=== PATIENT | female | born 1950 | race Caucasian/White ===

== ENCOUNTER → 2016-09-28 | Outpatient (CLI) | payer MEDICARE ==
[~2016-09-28] MED LIST: ALAW0.02 OU; ATEN50TA2 PO; BENETAB2 PO; CRES10TA32 PO; ELIQ5TAB PO; FISH1000 PO; HYDR25TA6 PO; HYDR25TAB PO; NASA1SPR; OMEP40CA2 PO; TYLE325T5 PO
--- NOTE | 2016-09-28 16:34 | REP ---
BILATERAL DIGITAL SCREENING MAMMOGRAM: 09/28/2016. Clinical history: Screening examination. She has no current complaint, personal or family history of breast cancer. She had a benign cyst aspiration and 1995 on the right. Comparison: 09/22/2012, 08/31/2011, right breast ultrasound and diagnostic mammogram, 08/11/2011 digital mammogram. Findings: The breast parenchyma are mostly fatty replaced with a few scattered fibroglandular elements present. Some questionable developing nodular tissue asymmetry upper outer quadrant retroareolar right breast at the junction of the middle and anterior one third of the breast is seen in both CC and MLO images and I put an arrow there on today's study. Axillary node in the inferior aspect of the axilla adjacent to the pectoralis shadow. A benign calcification is seen. There are no dominant masses, areas of architectural distortion/tissue asymmetry, suspicious cluster of microcalcification or other acute finding. Impression: 1. BIRADS ACR category zero complete, needs additional imaging evaluation. I would recommend followup spot magnified CC and MLO images with true ML and right breast ultrasound for further evaluation. This mammogram was interpreted with the aid of an FDA-approved computer-aided detection system. The patient states she had a clinical breast exam in 08/2016.
== END ==
LOC: M WHC 15:06
PROVIDERS: ATTEND Nurse Practitioner Adult Health
DX: R92.2 Inconclusive mammogram (principal)

== ENCOUNTER → 2016-10-07 | Outpatient (CLI) | payer MEDICARE ==
--- NOTE | 2016-10-07 11:47 | REP ---
DIAGNOSTIC MAMMOGRAM RIGHT BREAST: Diagnostic mammogram right breast performed. Multiple spot compression views are obtained and correlated with the recent mammogram of 09/28/2016 which showed a possible nodular area of parenchymal asymmetry in the upper outer quadrant of the right breast. Today's spot compression views show that the parenchyma in this region compresses out to an unchanged appearance compared to other prior exams. There is no persistent nodule or architectural distortion. IMPRESSION: ACR 2 benign. No persistent nodule or architectural distortion on today's spot compression views. There is no change since prior studies. Recommend followup mammogram in 1 year. BI-RADS/ACR category 2 mammogram. Benign finding(s). Routine annual screening mammography (for women over age 40). This mammogram was interpreted with the aid of an FDA-approved computer-aided detection system. A. Negative x-ray reports should not delay biopsy if a dominant or clinically suspicious mass is present. B. Four to eight percent of cancers are not identified by x-ray. C. Adenosis and dense breasts may obscure an underlying neoplasm. The patient letter being requested is M1. Signed by Chris Song MD 10/07/2016 01:31 P
== END ==
LOC: M RAD 10:53
PROVIDERS: ATTEND Nurse Practitioner Adult Health
DX: N63 Unspecified lump in breast (principal)

== ENCOUNTER 2016-11-03 09:15 | Day surgery (SDC) | payer MEDICARE ==
[~2016-11-03] VITALS: Ht 163.8 cm; Wt 101.6 kg
[~2016-11-03 09:15] MED LIST changes: +ACETAMINOPHEN 325 MG TAB PO PRN; +ACETYLCHOLINE OPHTH SOLN 1% 2ML (MIOCHOL-E) As Ordered ONE; +BALANCED SALT IRRIGATION SOLUTION 500ML BAG (FOR OR EYE MACHINE) As Ordered ONE; +CEFUROXIME 1MG/0.1ML INTRACAMERAL INJ As Ordered ONE; +CYCLOPENTOLATE 2% OPHTH SOLN 2ML BTL OS ONE; +D5W/0.2% SODIUM CHLORIDE 250 ML IV ONE; +HEALON DUET (HEALON 10MG/ML 0.55ML & HEALON ENDOCOAT 30MG/ML 0.85ML) As Ordered ONE; -HYDR25TA6 PO; +LIDOCAINE 1% SDV 5 ML VIAL As Ordered ONE; +LIDOCAINE 3.5 % 1ML OPHTH TOPICAL GEL OU ONE; +OFLOXACIN 0.3 % (OCUFLOX) OPTH SOL 5ML OS ONE; +PHENYLEPHRINE 2.5% OPHTH SOL 2ML OS ONE; +POVIDONE-IODINE 5% OPHTH PREP SOL 30ML As Ordered ONE; +PROPARACAINE 0.5% OPHTH SOL 15ML OS PRN; +TROPICAMIDE 1% OPHTH SOLN 2ML OS ONE
[2016-11-03] MEDS ORDERED: LR 500 ML ONE (10:09)
[2016-11-03] MEDS ORDERED: MIDAZOLAM INJ 2 MG/2 ML VIAL (J2250) As Ordered ONE (10:30)
[2016-11-03] MEDS ORDERED: fentaNYL 100 MCG/2 ML INJECTION (J3010) As Ordered ONE (10:30)
[2016-11-03 11:25] VITALS: BP 120/60
[2016-11-03] MEDS ORDERED: TRIMETHOBENZAMIDE 300 MG CAP PO PRN (11:30)
[2016-11-03] MEDS ORDERED: AcetaZOLAMIDE 500 MG ER CAP PO ONE (11:30)
[2016-11-03] MEDS ORDERED: KETOROLAC 0.5% OPHTH SOLN OS ONE (11:30)
--- NOTE | 2016-11-03 11:39 | RO ---
DATE OF PROCEDURE: 11/03/2016 PREPROCEDURE DIAGNOSIS: Age-related nuclear cataract, left eye. POSTPROCEDURE DIAGNOSIS: Age-related nuclear cataract, left eye. PROCEDURE: Femtosecond cataract extraction with posterior chamber intraocular lens, Age-related nuclear cataract, left eye. The lens used was [id number], 15.0 diopter. SURGEON: Alexus Hernández MD BULLET SLUGS INSPECTOR: ANESTHESIA: Topical sedation. DESCRIPTION OF PROCEDURE: The patient was brought to the operating room and put under the femtosecond laser. A lid speculum was placed between the lids, and the laser was lowered on. Docking was achieved with good suction. The laser procedure was performed with no difficulty. The laser was then removed from the eye, and the lid speculum was removed. The laser was moved over to the operating microscope and prepped and draped in the usual fashion. A lid speculum was placed between the lids. The eye was fixated. The side port incision was opened up with a spatula. 1% non-preservative lidocaine was instilled; then, viscoelastic was instilled. The main incision was then opened with the spatula. The capsulorrhexis was removed from the eye with the Utrata forceps. The lens was then hydrodissected, and a phacoemulsification unit was used to make a groove in the nucleus and one meridian. The nucleus was cracked into four quadrants, and then each quadrant was removed with the phacoemulsification unit. Any remaining cortex was removed with the irrigation and aspiration (I and A) unit. The capsular bag was refilled with viscoelastic. A posterior chamber intraocular lens was placed in the capsular bag. The remaining viscoelastic was removed. The wound was hydrated. Miochol and cefuroxime were instilled. The wound was watertight. The patient tolerated the procedure well and went to the recovery room in stable condition.
[2016-11-22] MEDS ORDERED: HYDR25TA6 PO (10:24)
== END 2016-11-03 11:44 | disposition home or self-care (01) ==
LOC: M SDC 09:15
PROVIDERS: ATTEND Ophthalmology
DX: H25.12 Age-related nuclear cataract, left eye (principal); I48.0 Paroxysmal atrial fibrillation; I10 Essential (primary) hypertension; E78.00 Pure hypercholesterolemia, unspecified; K21.9 Gastro-esophageal reflux disease without esophagitis; M12.9 Arthropathy, unspecified; R06.83 Snoring; Z79.899 Other long term (current) drug therapy; Z90.710 Acquired absence of both cervix and uterus; Z79.01 Long term (current) use of anticoagulants
CPT/HCPCS: 66984; J2250; J3010; V2632

== ENCOUNTER → 2016-11-18 | Outpatient (CLI) | payer MEDICARE ==
[~2016-11-18] MED LIST changes: -ACETAMINOPHEN 325 MG TAB PO PRN; -ACETYLCHOLINE OPHTH SOLN 1% 2ML (MIOCHOL-E) As Ordered ONE; -BALANCED SALT IRRIGATION SOLUTION 500ML BAG (FOR OR EYE MACHINE) As Ordered ONE; -CEFUROXIME 1MG/0.1ML INTRACAMERAL INJ As Ordered ONE; -CYCLOPENTOLATE 2% OPHTH SOLN 2ML BTL OS ONE; -D5W/0.2% SODIUM CHLORIDE 250 ML IV ONE; -HEALON DUET (HEALON 10MG/ML 0.55ML & HEALON ENDOCOAT 30MG/ML 0.85ML) As Ordered ONE; +HYDR25TA6 PO; -LIDOCAINE 1% SDV 5 ML VIAL As Ordered ONE; -LIDOCAINE 3.5 % 1ML OPHTH TOPICAL GEL OU ONE; -OFLOXACIN 0.3 % (OCUFLOX) OPTH SOL 5ML OS ONE; -PHENYLEPHRINE 2.5% OPHTH SOL 2ML OS ONE; -POVIDONE-IODINE 5% OPHTH PREP SOL 30ML As Ordered ONE; -PROPARACAINE 0.5% OPHTH SOL 15ML OS PRN; -TROPICAMIDE 1% OPHTH SOLN 2ML OS ONE
--- NOTE | 2016-11-18 19:40 | REP ---
HISTORY: Pain after trauma to the fifth digit of the left hand. COMPARISON: None. FINDINGS: No acute fracture or destructive osseous lesion. Signed by Sae Hernandez DO 11/22/2016 10:29 A
== END ==
LOC: M WUC 19:01
PROVIDERS: ATTEND Physician Assistant
DX: M79.645 Pain in left finger(s) (principal)

== ENCOUNTER 2016-12-01 09:10 | Day surgery (SDC) | payer MEDICARE ==
[~2016-12-01] VITALS: Ht 163.8 cm; Wt 101.6 kg
[~2016-12-01 09:10] MED LIST changes: +ACETAMINOPHEN 325 MG TAB PO PRN; +ACETYLCHOLINE OPHTH SOLN 1% 2ML (MIOCHOL-E) As Ordered ONE; +BALANCED SALT IRRIGATION SOLUTION 500ML BAG (FOR OR EYE MACHINE) As Ordered ONE; +CEFUROXIME 1MG/0.1ML INTRACAMERAL INJ As Ordered ONE; +CYCLOPENTOLATE 2% OPHTH SOLN 2ML BTL OD ONE; +HEALON DUET (HEALON 10MG/ML 0.55ML & HEALON ENDOCOAT 30MG/ML 0.85ML) As Ordered ONE; +LIDOCAINE 1% SDV 5 ML VIAL As Ordered ONE; +LIDOCAINE 3.5 % 1ML OPHTH TOPICAL GEL OU ONE; +OFLOXACIN 0.3 % (OCUFLOX) OPTH SOL 5ML OD ONE; +PHENYLEPHRINE 2.5% OPHTH SOL 2ML OD ONE; +POVIDONE-IODINE 5% OPHTH PREP SOL 30ML As Ordered ONE; +PROPARACAINE 0.5% OPHTH SOL 15ML OD PRN; +TROPICAMIDE 1% OPHTH SOLN 2ML OD ONE
[2016-12-01] MEDS ORDERED: TROPICAMIDE 1% OPHTH SOLN 2ML As Ordered ONE (09:24)
[2016-12-01] MEDS ORDERED: OFLOXACIN 0.3 % (OCUFLOX) OPTH SOL 5ML As Ordered ONE (09:24)
[2016-12-01] MEDS ORDERED: CYCLOPENTOLATE 2% OPHTH SOLN 2ML BTL As Ordered ONE (09:24)
[2016-12-01] MEDS ORDERED: PHENYLEPHRINE 2.5% OPHTH SOL 2ML As Ordered ONE (09:24)
[2016-12-01] MEDS ORDERED: LR 1,000 ML IV SCH (09:30)
[2016-12-01] MEDS ORDERED: fentaNYL 100 MCG/2 ML INJECTION (J3010) As Ordered ONE (09:57)
[2016-12-01] MEDS ORDERED: MIDAZOLAM INJ 2 MG/2 ML VIAL (J2250) As Ordered ONE (09:57)
[2016-12-01] MEDS ORDERED: CEFUROXIME 1MG/0.1ML INTRACAMERAL INJ As Ordered ONE (10:23)
[2016-12-01] MEDS ORDERED: LIDOCAINE 1% SDV 5 ML VIAL As Ordered ONE (10:23)
[2016-12-01] MEDS ORDERED: ACETYLCHOLINE OPHTH SOLN 1% 2ML (MIOCHOL-E) As Ordered ONE (10:23)
[2016-12-01] MEDS ORDERED: TRIMETHOBENZAMIDE 300 MG CAP PO PRN (11:15)
[2016-12-01] MEDS ORDERED: AcetaZOLAMIDE 500 MG ER CAP PO ONE (11:15)
[2016-12-01] MEDS ORDERED: KETOROLAC 0.5% OPHTH SOLN OD ONE (11:15)
[2016-12-01 11:39] VITALS: BP 155/82
--- NOTE | 2016-12-01 13:27 | RO ---
DATE OF PROCEDURE: 12/01/2016 PREPROCEDURE DIAGNOSIS: Age related nuclear cataract right eye. POSTPROCEDURE DIAGNOSIS: Age related nuclear cataract right eye. PROCEDURE: Femtosecond cataract extraction with posterior chamber intraocular lens. The lens used was [id number], 16.5 diopter. SURGEON: Alexus Hernández MD TRIMMING OPERATOR: ANESTHESIA: Topical sedation. DESCRIPTION OF PROCEDURE: The patient was brought to the operating room and put under the femtosecond laser. A lid speculum was placed between the lids, and the laser was lowered on. Docking was achieved with good suction. The laser procedure was performed with no difficulty. The laser was then removed from the eye, and the lid speculum was removed. The laser was moved over to the operating microscope and prepped and draped in the usual fashion. A lid speculum was placed between the lids. The eye was fixated. The side port incision was opened up with a spatula. 1% non-preservative lidocaine was instilled; then, viscoelastic was instilled. The main incision was then opened with the spatula. The capsulorrhexis was removed from the eye with the Utrata forceps. The lens was then hydrodissected, and a phacoemulsification unit was used to make a groove in the nucleus and one meridian. The nucleus was cracked into four quadrants, and then each quadrant was removed with the phacoemulsification unit. Any remaining cortex was removed with the irrigation and aspiration (I and A) unit. The capsular bag was refilled with viscoelastic. A posterior chamber intraocular lens was placed in the capsular bag. The remaining viscoelastic was removed. The wound was hydrated. Miochol and cefuroxime were instilled. The wound was watertight. The patient tolerated the procedure well and went to the recovery room in stable condition.
== END 2016-12-01 11:40 | disposition home or self-care (01) ==
LOC: M SDC 09:10
PROVIDERS: ATTEND Ophthalmology
DX: H25.11 Age-related nuclear cataract, right eye (principal); K21.9 Gastro-esophageal reflux disease without esophagitis; I48.0 Paroxysmal atrial fibrillation; I10 Essential (primary) hypertension; E78.00 Pure hypercholesterolemia, unspecified; M12.9 Arthropathy, unspecified; R06.83 Snoring; Z79.899 Other long term (current) drug therapy; Z79.01 Long term (current) use of anticoagulants; Z78.0 Asymptomatic menopausal state; Z90.710 Acquired absence of both cervix and uterus
CPT/HCPCS: 66984; J2250; J3010; V2632

== ENCOUNTER → 2017-04-20 | Outpatient (REF) | payer MEDICARE ==
[2017-04-21 09:25] LABS: MAGNESIUM LEVEL 2.3 MG/DL (1.8-2.4)
== END ==
LOC: M LAB REF 13:39
DX: I48.0 Paroxysmal atrial fibrillation (principal); Z79.899 Other long term (current) drug therapy
CPT/HCPCS: 80162

== ENCOUNTER → 2017-08-04 | Outpatient (REF) | payer MEDICARE ==
[2017-08-04 13:10] LABS: DIGOXIN LEVEL 0.9 NG/ML (0.5-2.0)
== END ==
LOC: M LAB REF 12:28
DX: I48.0 Paroxysmal atrial fibrillation (principal); Z79.01 Long term (current) use of anticoagulants
CPT/HCPCS: 80162

== ENCOUNTER 2018-10-04 11:35 | Emergency (ER) | payer OTHER, MEDICARE ==
[~2018-10-04] VITALS: Ht 162.6 cm; Wt 104.5 kg
[~2018-10-04 11:35] MED LIST changes: -ACETAMINOPHEN 325 MG TAB PO PRN; -ACETYLCHOLINE OPHTH SOLN 1% 2ML (MIOCHOL-E) As Ordered ONE; -BALANCED SALT IRRIGATION SOLUTION 500ML BAG (FOR OR EYE MACHINE) As Ordered ONE; -CEFUROXIME 1MG/0.1ML INTRACAMERAL INJ As Ordered ONE; +CRES10TA PO; -CRES10TA32 PO; -CYCLOPENTOLATE 2% OPHTH SOLN 2ML BTL OD ONE; -HEALON DUET (HEALON 10MG/ML 0.55ML & HEALON ENDOCOAT 30MG/ML 0.85ML) As Ordered ONE; -LIDOCAINE 1% SDV 5 ML VIAL As Ordered ONE; -LIDOCAINE 3.5 % 1ML OPHTH TOPICAL GEL OU ONE; -OFLOXACIN 0.3 % (OCUFLOX) OPTH SOL 5ML OD ONE; -PHENYLEPHRINE 2.5% OPHTH SOL 2ML OD ONE; -POVIDONE-IODINE 5% OPHTH PREP SOL 30ML As Ordered ONE; -PROPARACAINE 0.5% OPHTH SOL 15ML OD PRN; -TROPICAMIDE 1% OPHTH SOLN 2ML OD ONE
[2018-10-04] MEDS ORDERED: SHIN50IN IM (12:32)
[2018-10-04] MEDS ORDERED: TEMO0.0517 TOP (12:32)
[2018-10-04] MEDS ORDERED: FLEC10TA PO (12:32)
[2018-10-04] MEDS ORDERED: ZYRTTAB8 PO (12:32)
--- NOTE | 2018-10-04 12:48 | REP ---
CT HEAD WITHOUT CONTRAST: HISTORY: Head injury. Areas of decreased attentuation are present in the periventricular white matter. This represents small vessel ischemic disease. There is no intraparenchymal hemorrhage, mass or midline shift. The ventricular system is normal in appearance. The cortical sulci are dilated consistent with minimal volume loss. There is no fracture. The visualized sinuses are clear. IMPRESSION: 1. Small vessel ischemic disease. 2. Minimal volume loss. Electronically Signed by Luiz Victoria MD 10/04/2018 12:48 P
--- NOTE | 2018-10-04 13:19 | REP ---
LEFT KNEE SERIES: Four views of the left knee performed. There is a nondisplaced fracture of the proximal tibia with a vertical oblique orientation. This extends into the knee joint. No other acute fracture or dislocation is seen. There is a moderate joint effusion. Electronically Signed by Chris Song MD 10/05/2018 12:40 A
--- NOTE | 2018-10-04 13:38 | REP ---
CT CERVICAL SPINE WITHOUT CONTRAST: HISTORY: Fall. There is no acute fracture or subluxation. Disc bulges are present at the C3-4 and C4-5 levels. Disc bulges with associated osteophyte formation present at the C5-6 and C6-7 levels. There is minimal narrowing of the spinal canal. Uncinate process and/or facet hypertrophy are present at the C2-3 through C7-T1 levels. These findings produce minimal to mild narrowing of the neural foramina. The C4-5 through C6-7 intervertebral discs are decreased in height consistent with disc degeneration. IMPRESSION: 1. There is no acute fracture or subluxation. 2. There is cervical spondylosis at the C2-3 through C7-T1 levels. Electronically Signed by Luiz Victoria MD 10/04/2018 05:58 P
[2018-10-04] MEDS ORDERED: TRAM50TA2 PO (14:13)
[2018-10-04 14:46] VITALS: BP 135/90
== END 2018-10-04 15:13 | disposition home or self-care (01) ==
LOC: EDBD 11:35 → M ED 11:35
DX: S82.145A Nondisplaced bicondylar fracture of left tibia, initial encounter for closed fracture (principal); S00.83XA Contusion of other part of head, initial encounter; M25.462 Effusion, left knee; W10.8XXA Fall (on) (from) other stairs and steps, initial encounter; Y92.89 Other specified places as the place of occurrence of the external cause; Y99.0 Civilian activity done for income or pay; I67.82 Cerebral ischemia; M47.892 Other spondylosis, cervical region; I10 Essential (primary) hypertension; I48.91 Unspecified atrial fibrillation; E78.5 Hyperlipidemia, unspecified; Z88.5 Allergy status to narcotic agent; Z79.899 Other long term (current) drug therapy; Z79.01 Long term (current) use of anticoagulants

== ENCOUNTER → 2019-03-01 | Outpatient (CLI) | payer MEDICARE ==
[~2019-03-01] MED LIST changes: +FLEC10TA PO; -OMEP40CA2 PO; +OMEP40CA97 PO; +SHIN50IN IM; +TEMO0.0517 TOP; +TRAM50TA2 PO; +ZYRTTAB8 PO
--- NOTE | 2019-03-01 08:57 | REPMRS ---
Patient History The patient states she had a clinical breast exam in 07/2018. Patient is postmenopausal. No known family history of cancer. Benign cyst aspiration of the right breast, 1994. No Hormone Replacement Therapy Digital Woman Screen Mammo: March 01, 2019 - Exam #: [id number] Bilateral CC and MLO view(s) were taken. Technologist: Smiely Tuttle, Technologist Prior study comparison: October 07, 2016, right breast digital mammo diagnostic unilateral, performed at [facility]. September 28, 2016, digital woman screen mammo performed at [facility]. FINDINGS: There are scattered fibroglandular densities. There is a well-circumscribed 5-6 mm nodule in the right lateral mid breast which appears slightly more prominent than on previous mammograms. This merits further evaluation. There has been no change in the appearance of the mammogram from the prior studies. There is a mild amount of scattered fibroglandular density which is fairly symmetric. There is no interval development of dominant mass, architectural distortion, or grouped microcalcification suggestive of malignancy. 3-D tomosynthesis shows no additional findings. Assessment: BI-RADS/ACR category 0 mammogram, Incomplete: Need additional imaging evaluation and/or prior mammograms for comparison. Recommendation Ultrasound and special view mammogram of the right breast. This patient's Lifetime Breast Cancer Risk is estimated at 3.0 %. This mammogram was interpreted with the aid of an FDA-approved computer-aided dectection system. Electronically Signed By: Eddy Mitchell MD 03/01/19 0857
== END ==
LOC: M WHC 06:36
PROVIDERS: ATTEND Nurse Practitioner Adult Health
DX: Z12.31 Encounter for screening mammogram for malignant neoplasm of breast (principal); N63.10 Unspecified lump in the right breast, unspecified quadrant

== ENCOUNTER → 2019-03-16 | Outpatient (CLI) | payer MEDICARE ==
--- NOTE | 2019-03-16 18:21 | REP ---
Digital diagnostic unilateral right breast mammography with CAD and focused right breast sonography: History: Screening mammography 01 March 2019 was BIRADS category 0 because of a well-circumscribed 5 mm nodule in the right lateral breast which was felt to be a little more prominent than previously. Mammographic findings: Magnified focal spot compression CC, mediolateral, and MLO views were obtained. These confirm the presence of a well-circumscribed nodule in the right lateral breast at approximately 9 o'clock position. No other mammographic findings. Sonographic findings: The right breast is scanned from 8 o'clock to 9 o'clock. At 9 o'clock there is a 6 x 6 x 4 mm oval-shaped hypoechoic nodule 11.6 cm from the nipple which is felt to account for the mammographic opacity. This has hypoechoic rim surrounding an echogenic hilum. It is consistent with a small intramammary lymph node and has a benign appearance. Impression: BIRADS category II benign findings. Repeat screening mammography recommended 1 year. BIRADS 2: BI-RADS/ACR category 2 mammogram. Benign Findings. This mammogram was interpreted with the aid of an FDA-approved computer-aided detection system. The patient states she had a clinical breast exam in July 2018. The patient letter being requested is M1. This patient's estimated Tyrer-Cuzick lifetime risk assessment for the breast cancer is 3.0 %. Electronically Signed by Petar Mitchell MD 03/16/2019 08:54 P
== END ==
LOC: M RAD 11:32
PROVIDERS: ATTEND Nurse Practitioner Adult Health
DX: N63.10 Unspecified lump in the right breast, unspecified quadrant (principal)

== ENCOUNTER → 2020-05-22 | Outpatient (CLI) | payer MEDICARE ==
[~2020-05-22] MED LIST changes: +HYDR-3490 PO; -HYDR25TAB PO
--- NOTE | 2020-05-22 08:36 | REPMRS ---
Patient History The patient states she had a clinical breast exam in January 2020. No known family history of cancer. Benign cyst aspiration of the right breast, 1994. No Hormone Replacement Therapy Digital Woman Screen Mammo: May 22, 2020 - Exam #: [id number] Bilateral CC and MLO view(s) were taken. Technologist: Sheryl Aquino Technologist Prior study comparison: March 16, 2019, right breast digital mammo diagnostic unilateral, performed at [facility]. March 01, 2019, bilateral digital woman screen mammo performed at [facility]. September 28, 2016, digital woman screen mammo performed at [facility]. FINDINGS: There are scattered fibroglandular densities. The Volpara volumetric breast density category is:B. There has been no change in the appearance of the mammogram from the prior studies. There is a mild amount of scattered fibroglandular density which is fairly symmetric. There is no interval development of dominant mass, architectural distortion, or grouped microcalcification suggestive of malignancy. 3-D tomosynthesis shows no additional findings. Assessment: BI-RADS/ACR category 1 mammogram. Negative Mammogram. Recommendation Routine screening mammogram of both breasts in 1 year (for women over age 40). This patient's [facility] Lifetime Breast Cancer Risk is estimated at 2.9 %. This mammogram was interpreted with the aid of an FDA-approved computer-aided dectection system. Electronically Signed By: Eddy Mitchell MD 05/22/20 0863
== END ==
LOC: M WHC 07:52
PROVIDERS: ATTEND Nurse Practitioner Adult Health
DX: Z12.31 Encounter for screening mammogram for malignant neoplasm of breast (principal); Z86.018 Personal history of other benign neoplasm

== ENCOUNTER → 2021-12-21 | Outpatient (CLI) | payer MEDICARE ==
[~2021-12-21] MED LIST changes: +FLEC100T27 PO; -FLEC10TA PO; +OMEP40CA4 PO; -OMEP40CA97 PO
== END ==
LOC: M WHC 12:11
PROVIDERS: ATTEND Nurse Practitioner Adult Health
DX: Z12.31 Encounter for screening mammogram for malignant neoplasm of breast (principal)

== ENCOUNTER → 2022-02-07 | Outpatient (REF) | payer MEDICARE | LOC: M LAB REF 20:03 | PROVIDERS: ATTEND Physician Assistant | DX: R30.0 Dysuria (principal) ==

== ENCOUNTER → 2022-12-24 | Outpatient (CLI) | payer MEDICARE | LOC: M WHC 09:29 | PROVIDERS: ATTEND Nurse Practitioner Adult Health | DX: Z12.31 Encounter for screening mammogram for malignant neoplasm of breast (principal) ==

== ENCOUNTER → 2024-01-09 | Outpatient (CLI) | payer MEDICARE | LOC: M WHC 16:53 | PROVIDERS: ATTEND Nurse Practitioner Adult Health | DX: Z12.31 Encounter for screening mammogram for malignant neoplasm of breast (principal); R92.313 Mammographic fatty tissue density, bilateral breasts ==

== ENCOUNTER → 2024-03-09 | Outpatient (CLI) | payer MEDICARE | LOC: M RAD 15:33 | PROVIDERS: ATTEND Student in an Organized Health Care Education/Training Program | DX: M17.12 Unilateral primary osteoarthritis, left knee (principal) ==

== ENCOUNTER → 2025-02-01 | Outpatient (CLI) | payer MEDICARE | LOC: M WHC 01-10 16:27 | PROVIDERS: ATTEND Nurse Practitioner Adult Health | DX: Z12.31 Encounter for screening mammogram for malignant neoplasm of breast (principal) ==